=== PATIENT | female | born 1980 | race Caucasian/White ===

== ENCOUNTER 2017-04-29 18:53 | Emergency (ER) | payer OTHER, BC ==
[~2017-04-29] VITALS: Ht 175.3 cm; Wt 60.0 kg
[2017-04-29] MEDS ORDERED: ULTRAM50 M1 PO (20:12)
[2017-04-29] MEDS ORDERED: FLEXERIL PO (20:12)
[2017-04-29] MEDS ORDERED: LIPITOR20 M1 PO (20:15)
[2017-04-29 20:27] VITALS: BP 158/94
[2017-04-29] MEDS ORDERED: CYCLOBENZAPRINE10 MG PO (20:30)
[2017-04-29] MEDS ORDERED: TRAMADOL HYDROC50 MG PO (20:31)
== END 2017-04-29 20:27 | disposition home or self-care (01) | DRG 552 ==
LOC: ED 18:53
DX: S13.9XXA Sprain of joints and ligaments of unspecified parts of neck, initial encounter (principal); M54.2 Cervicalgia; R51 Headache; R11.0 Nausea; V43.52XA Car driver injured in collision with other type car in traffic accident, initial encounter; Y92.414 Local residential or business street as the place of occurrence of the external cause; W22.11XA Striking against or struck by driver side automobile airbag, initial encounter